=== PATIENT | female | born 1980 | race Caucasian/White ===

== ENCOUNTER 2016-12-06 18:24 | Emergency (ER) | payer OTHER ==
[2016-12-06 18:41] VITALS: BP 136/84; PULSE 78; RESP 20; TEMP 97.5
[2016-12-06] MEDS ORDERED: LIDOCAINE/EPINEPHR/TETRACAINE 5 ML BOTTLE TOPICAL ONE (19:01)
[2016-12-06] MEDS ORDERED: DIPH,PERTUS(ACELL)TETVAC-LF 0.5 ML VIAL IM ONE (19:03)
--- NOTE | 2016-12-06 19:03 | ED ---
Wound/Laceration HPI - General Chief Complaint: Wound/Laceration Stated Complaint: laceration over right eye Time Seen by Provider: 12/06/16 18:44 Source: patient, RN notes reviewed Mode of arrival: ambulatory Limitations: no limitations - History of Present Illness Initial Comments: Patient is a 36-year old female presents to the emergency room for evaluation of right eye laceration. Patient states that she was in the right eye with a softball about an hour before arrival. Patient denies loss of consciousness. Patient denies changes in vision. Patient denies nausea or vomiting. Patient denies neck pain. Patient states she has a laceration underneath her right eyebrow. Patient states she's not sure when her last tetanus vaccine was. Patient denies any other injuries during incident. Patient denies headache. Patient denies taking blood thinners. - Related Data Home Medications Medication Instructions Recorded Confirmed Loratadine-Pseudoeph 10-240 mg 1 tab PO DAILY 12/01/14 12/01/14 [Claritin-D 24 Hour] Norgestimate-Ethinyl Estradiol 1 tab PO DAILY 12/01/14 12/01/14 [Ortho Tri-Cyclen 28 Tablet] Previous Rx's Medication Instructions Recorded oxyCODONE HCL/ACETAMINOPHEN 1 each PO Q6HR PRN #30 tab 12/02/14 [Percocet 5-325 mg] Allergies Allergy/AdvReac Type Severity Reaction Status Date / Time No Known Allergies Allergy Verified 12/06/16 18:41 Review of Systems ROS Statement: Those systems with pertinent positive or pertinent negative responses have been documented in the HPI. ROS Other: All systems not noted in ROS Statement are negative. Past Medical History Past Medical History: No Reported History Additional Past Medical History / Comment(s): Patient has had surgery for fractured femur on the right side History of Any Multi-Drug Resistant Organisms: None Reported Past Surgical History: No Surgical Hx Reported Past Psychological History: No Psychological Hx Reported Smoking Status: Never smoker Past Alcohol Use History: None Reported Past Drug Use History: None Reported General Exam - General Exam Comments Initial Comments: Sitting in exam room, no acute distress. Limitations: no limitations General appearance: alert, in no apparent distress Expanded Head exam: Present: laceration (2cm laceration under the right lateral portion of the eyebrow), contusion (right eye) 1 - 2cm laceration Eye exam: Present: normal appearance, PERRL, EOMI Pupils: Present: normal accommodation ENT exam: Present: normal exam Neck exam: Present: normal inspection Respiratory exam: Absent: respiratory distress Extremities exam: Present: normal inspection Back exam: Present: normal inspection Neurological exam: Present: alert, oriented X3, CN II-XII intact, normal gait Psychiatric exam: Present: normal affect, normal mood Skin exam: Present: warm, dry, normal color. Absent: rash Course Vital Signs 12/06/16 18:38 Temperature 97.5 F L Pulse Rate 78 Respiratory 20 Rate Blood Pressure 136/84 O2 Sat by Pulse 99 Oximetry Procedures - Laceration Laceration #1 Consent Obtained: verbal consent Indication: laceration Site: eyelid (right upper) Size (cm): 2 Description: linear Depth: simple, single layer Anesthetic Used: lidocaine 1% Anesthesia Technique: local infiltration Amount (mls): 2 Pre-repair: wound explored Type of Sutures: nylon Size of Sutures: 6-0 Number of Sutures: 6 Technique: simple, interrupted Patient Tolerated Procedure: well, no complications Medical Decision Making - Medical Decision Making Patient is a 36-year-old female presents to the emergency room for evaluation of right eye contusion and laceration. Laceration repaired with sutures. Advised patient to continue icing eye. Patient denies any changes in vision. Patient states she began developing a slight 3 out of 10 headache while she was here. Patient was given Tylenol. Patient declines any further workup. Advised patient to follow-up with primary care provider. Advised patient to return in 3-5 days for suture removal. Patient states she understands everything that was discussed with her. Return parameters discussed. Disposition Clinical Impression: Eyelid laceration, right, Contusion, eye, right Disposition: HOME SELF-CARE Condition: Good Instructions: Care For Your Stitches (ED), Black Eye (ED), Facial Laceration ( ED) Additional Instructions: Ice on and off for 10-15 minutes at a time. Take Tylenol or Motrin as needed for pain. Clean suture area with a damp cloth. Please return in 3-5 days for suture removal. Please follow up with primary care provider in 1-2 days. If any new symptom arises or symptoms worsen, return to ER as soon as possible. Referrals: Zain Toussaint MD [Primary Care Provider] - 1-2 days Time of Disposition: 19:41
[2016-12-06] MEDS ORDERED: ACETAMINOPHEN TAB 325 MG TAB PO STA (19:40)
== END 2016-12-06 20:09 | disposition home or self-care (01) ==
LOC: EC 18:24
DX: S01.111A Laceration without foreign body of right eyelid and periocular area, initial encounter (principal); W21.07XA Struck by softball, initial encounter; Y93.64 Activity, baseball; Z79.899 Other long term (current) drug therapy; Z79.3 Long term (current) use of hormonal contraceptives; Z23 Encounter for immunization
CPT/HCPCS: 12011; 90471; 90715; 99282

== ENCOUNTER → 2018-06-08 | Outpatient (CLI) | payer OTHER ==
[2018-06-08 11:29] VITALS: PULSE 62; TEMP 97.4; BMI 28.8
--- NOTE | 2018-06-08 12:06 | P.HPOB ---
History of Present Illness H&P Date: 06/08/18 Chief Complaint: The patient is here for her routine gynecologic exam. This is a 37-year-old G0 with an LMP of 05/31/2018. The patient is without gynecologic complaints and states she is doing well with her control pills. She is not interested in getting . Menses have been regular. Review of Systems The patient has gained 3 pounds over the last year. She denies respiratory, cardiac, or G.I. problems. 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 She has been on oral contraception since she was a teenager. History of Any Multi-Drug Resistant Organisms: None Reported Past Surgical History: Appendectomy, Orthopedic Surgery (Patient has had surgery for fractured femur on the right side) Past Psychological History: No Psychological Hx Reported Smoking Status: Never smoker Past Alcohol Use History: None Reported Past Drug Use History: None Reported Additional History: She has been with her boyfriend since 2003 and lives with him. 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 - Past Family History Father Family Medical History: CVA/TIA Additional Family Medical History / Comment(s): Grandmother had pancreatic cancer. Medications and Allergies Home Medications Medication Instructions Recorded Confirmed Type Norgestimate-Ethinyl Estradiol 1 tab PO DAILY 12/01/14 06/08/18 History [Ortho Tri-Cyclen 28 Tablet] Multivitamin [Multivitamins Adult PO DAILY 06/08/18 History Gummies] Allergies Allergy/AdvReac Type Severity Reaction Status Date / Time No Known Allergies Allergy Verified 06/08/18 11:29 Exam Vital Signs Temp Pulse 06/08/18 11:22 97.4 F L 62 Intake and Output 06/07/18 06/08/18 06/08/18 22:59 06:59 14:59 Other: Weight 78.471 kg Blood pressure 124/86, height 5'5", weight 173 pounds, BMI 28.8. This is a well-developed well-nourished white female who is alert and oriented times 3 in no acute distress. HEENT: Within normal limits. NECK: Supple without mass or thyromegaly. CHEST AND LUNGS: Clear to auscultation. HEART: Regular rate and rhythm. BREASTS: Are without mass or discharge. AXILLARY EXAM: Negative for adenopathy. BACK: Negative for CVA tenderness. ABDOMEN: Soft, nontender, without palpable masses. PELVIC EXAM: Normal external genitalia. Cervix and vagina appear normal. The cervix is slightly friable upon doing the Pap smear. There is no unusual discharge. There is no evidence of prolapse. The uterus is midposition, nongravid size and nontender. There are no palpable adnexal masses or tenderness. RECTAL EXAM: negative for mass or tenderness. EXTREMITIES: Nontender. IMPRESSION: 1. 37-year-old female with normal gynecologic exam who is doing well with oral contraception. PLAN: 1. Pap smear was performed. 2. Self breast awareness was discussed with the patient. 3. Osteoporosis prevention was discussed. I have stressed the importance of adequate calcium, vitamin D and regular exercise. Recommended amounts of calcium and vitamin D were also discussed. 4. She will continue on oral contraception. The electronic prescription will be sent to [facility] pharmacy in [place]. 5. She will return in one year.
== END | disposition home or self-care (01) ==
LOC: WWCWWP 11:19
PROVIDERS: ATTEND Obstetrics & Gynecology
DX: Z53.9 Procedure and treatment not carried out, unspecified reason (principal)

== ENCOUNTER → 2019-01-31 | Outpatient (CLI) | payer OTHER ==
--- NOTE | 2019-01-31 13:28 | MR ---
EXAMINATION TYPE: MR brain wo/w con DATE OF EXAM: 01/31/2019 COMPARISON: NONE HISTORY: Migraine TECHNIQUE: Multiplanar, multisequence images of the brain and brainstem is performed without and with IV contras t, utilizing 8 mL intravenous Gadavist . FINDINGS: Diffusion weighted images demonstrate no evidence of a recent infarct or other diffusion ab normality. There is no extra-axial fluid collection or significant white matter signal abnormality. The ventricular system and cisternal spaces are normal in size and appearance. The brain volume is age appropriate. Midline structures demonstrate normal morphology. The craniocervical junction appears within normal limits. Post contrast images demonstrate no abnormal enhancement. The dural venous sinuses appear pa tent. The visualized sinuses are clear and the globes are intact. IMPRESSION: Unremarkable study. No suspicious findings seen to account for patient's symptoms of migr harish headaches.
== END | disposition home or self-care (01) ==
LOC: RADMRIMAIN 08:12
PROVIDERS: ATTEND Family Medicine
DX: G43.909 Migraine, unspecified, not intractable, without status migrainosus (principal)
CPT/HCPCS: 70553; A9585

== ENCOUNTER → 2019-05-24 | Outpatient (CLI) | payer OTHER ==
[2019-05-24 09:28] VITALS: BP 134/91; PULSE 72; RESP 16; TEMP 98
--- NOTE | 2019-05-24 10:02 | P.HPOB ---
History of Present Illness H&P Date: 05/24/19 Chief Complaint: the patient is here for her routine gynecologic exam This is a 38-year-old G0 with an LMP of 05/03/2019. The patient states she is doing well on her control pills and is without gynecologic complaints. She is not interested in getting in the near future. Review of Systems The patient has gained 5 pounds over the last year. She denies respiratory, cardiac, or G.I. problems. 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 She has been on oral contraception since she was a teenager. History of Any Multi-Drug Resistant Organisms: None Reported Past Surgical History: Appendectomy, Orthopedic Surgery Past Psychological History: No Psychological Hx Reported Smoking Status: Never smoker Past Alcohol Use History: None Reported Past Drug Use History: None Reported Additional History: she has been with her boyfriend since 2003 and lives with him. 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 - Past Family History Father Family Medical History: CVA/TIA Additional Family Medical History / Comment(s): Grandmother had pancreatic cancer. Medications and Allergies Home Medications Medication Instructions Recorded Confirmed Type Multivitamin [Multivitamins Adult 1 tab PO DAILY 06/08/18 05/24/19 History Gummies] Norgestimate-Ethinyl Estradiol 1 each PO DAILY #84 tablet 06/08/18 05/24/19 Rx [Ortho Tri-Cyclen 28 Tablet] Fexofenadine/Pseudoephedrine 1 tab PO DAILY 05/24/19 05/24/19 History [Renetta-D 24 Hour Tablet] Allergies Allergy/AdvReac Type Severity Reaction Status Date / Time No Known Allergies Allergy Verified 05/24/19 09:23 Exam Vital Signs Temp Pulse Resp BP Pulse Ox 05/24/19 09:25 98.0 F 72 16 134/91 97 Intake and Output 05/23/19 05/24/19 05/24/19 22:59 06:59 14:59 Other: Weight 80.739 kg height 5 feet 6 inches, weight 178 pounds, BMI 28.7. This is a well-developed well-nourished White female who is alert and oriented times 3 in no acute distress. HEENT: Within normal limits. NECK: Supple without mass or thyromegaly. CHEST AND LUNGS: Clear to auscultation. HEART: Regular rate and rhythm. BREASTS: Are without mass or discharge. AXILLARY EXAM: Negative for adenopathy. BACK: Negative for CVA tenderness. ABDOMEN: Soft, nontender, without palpable masses. PELVIC EXAM: Normal external genitalia. Cervix and vagina appear normal. There is no unusual discharge. There is no evidence of prolapse. The uterus is midposition, nongravid size and nontender. There are no palpable adnexal masses or tenderness. RECTAL EXAM: negative for mass or tenderness. EXTREMITIES: Nontender. IMPRESSION: 1. 38-year-old female doing well on oral contraception with normal gynecologic exam. 2.previous ASCUS Pap smear on 06/08/2018 with negative high-risk HPV testing. PLAN: 1. Pap smear was deferred. We will plan on repeating the Pap smear with high- risk HPV testing in approximately 1-2 years. 2. Self breast awareness was discussed with the patient. 3. We have discussed other control options including the IUD and tubal sterilization. We have discussed a slight gradual increased risk for blood clots with oral contraception, but since she is healthy and is a nonsmoker, she still is a candidate to continue oral contraception. She states she likes being on oral contraception and is declining any other method at this time. 4. her control pill prescription will be sent to my her pharmacy in [place]. 5. She was advised to return in one year for her annual well woman exam.
== END ==
LOC: WWCWWP 09:10
PROVIDERS: ATTEND Obstetrics & Gynecology
DX: Z53.9 Procedure and treatment not carried out, unspecified reason (principal)

== ENCOUNTER 2020-03-01 06:25 | Day surgery (SDC) | payer OTHER ==
[2020-02-29 12:40] VITALS: BMI 28.5
[~2020-03-01 06:25] MED LIST: ACETAMINOPHEN TAB 500 MG TAB PO ONE; DEXAMETHASONE SOD PHOSPHATE 10 MG/ML 1 ML VIAL IV ONE; HEPARIN SODIUM,PORCINE 5,000 UNIT/ML 1 ML VIAL SQ ONE; LACTATED RINGERS 1,000 ML IV SCH; LIDOCAINE 1% (10MG/ML) FOR IV START INTRADERMA PRN; MIDAZOLAM 2 MG/2 ML VIAL IV PRN; ONDANSETRON 4 MG/2 ML VIAL IVP ONE
[2020-03-01 06:53] VITALS: RESP 16
[2020-03-01] MEDS ORDERED: BUPIVACAINE (PF) 0.25% 30 ML VIAL SQ ONE ×2 (07:29→08:08)
[2020-03-01] MEDS ORDERED: MIDAZOLAM 2 MG/2 ML VIAL ONE (07:45)
[2020-03-01] MEDS ORDERED: fentaNYL (PF) 50 MCG/ML 2 ML AMP ONE (07:45)
[2020-03-01] MEDS ORDERED: HYDROmorphone (PF) 1 MG/ML ONE (07:45)
[2020-03-01] MEDS ORDERED: GLYCOPYRROLATE 0.2 MG/ML 2 ML VIAL ONE (07:45)
[2020-03-01] MEDS ORDERED: LIDOCAINE 1% INJ 10MG/ML (20 ML MDV) ONE (07:45)
[2020-03-01] MEDS ORDERED: NEOSTIGMINE 1 MG/ML 10 ML VIAL ONE (07:45)
[2020-03-01] MEDS ORDERED: SUCCINYLCHOLINE CHLORIDE 100 MG/5 ML SYR IV ONE (07:45)
[2020-03-01] MEDS ORDERED: PROPOFOL 10 MG/ML 20 ML VIAL IV ONE (07:45)
[2020-03-01] MEDS ORDERED: ROCURONIUM 10 MG/ML (5 ML VIAL) IV ONE (07:45)
[2020-03-01] MEDS ORDERED: LACTATED RINGERS 1,000 ML IV ONE (08:28)
[2020-03-01] MEDS ORDERED: ONDANSETRON 4 MG/2 ML VIAL IVP PRN (08:47)
[2020-03-01] MEDS ORDERED: HYDROcodone/APAP 5-325MG 1 EACH TAB PO PRN (08:47)
[2020-03-01] MEDS ORDERED: NALOXONE 0.4 MG/ML 1 ML VIAL IV PRN (08:47)
--- NOTE | 2020-03-01 08:50 | P.OP ---
Date of Procedure: 03/01/20 Procedure(s) Performed: PREOPERATIVE DIAGNOSIS: Chronic cholecystitis POSTOPERATIVE DIAGNOSIS: Same PROCEDURE: Laparoscopic cholecystectomy SURGEON: Maggy EBL: Minimal see anesthesia record ANESTHESIA: Gen. COMPLICATIONS: None OPERATIVE PROCEDURE: The patient was brought and placed on the operating room table in the supine position. The patient was placed under general anesthesia at that time. The abdomen was prepped and draped in the usual sterile fashion. A small vertical infraumbilical incision was made. The fascia was grasped with the Kirstin forceps. The fascia was retracted anteriorly. The Veress needle was advanced into the peritoneal cavity. The saline drop test was normal. Insufflation took place up to 15 mmHg. A 5 mm optical trocar was advanced and the peritoneal cavity. 2 additional 5 mm trochars were placed in the right upper quadrant under direct visualization. A 12 mm trocar was advanced into the epigastric incision site. The gallbladder was retracted superiorly and laterally. The peritoneum overlying the infundibulum was bluntly dissected. The patient's cystic duct was visualized. The junction between the cystic duct common and hepatic duct was identified. The cystic duct was then divided after placement of 3 12 mm clips on the patient's side and one on the specimen side. The cystic artery was identified and clipped as well. A small vessel was seen along the gallbladder fossa and clipped as well. The gallbladder was then removed from the liver bed using electrocautery. The gallbladder was then removed from the epigastric trocar site with an Endo Catch bag. The gallbladder fossa was irrigated with saline. There was no evidence of any bleeding or biliary drainage seen. The fascia at the 12 millimeter site was closed using a Rayo-Rosey 0 Vicryl stitch. The trochars were then removed. The skin at all 4 sites was closed using a 4-0 Monocryl stitch. Skin glue was utilized on the incision sites. At the end of this procedure the sponge and needle counts were correct. DISPOSITION: Stable to the recovery room
[2020-03-01 09:02] VITALS: TEMP 97
[2020-03-01] MEDS ORDERED: ONDANSETRON 4 MG/2 ML VIAL IVP ONE (09:05)
[2020-03-01] MEDS ORDERED: KETOROLAC 15 MG/ML 1 ML VIAL IVP ONE (09:07)
[2020-03-01] MEDS ORDERED: diphenhydrAMINE 50 MG/ML 1 ML VIAL IVP ONE (09:18)
[2020-03-01] MEDS: HYDROmorphone 0.5 MG/0.5 ML SYRINGE IVP PRN ×2 (09:20→09:30)
[2020-03-01 11:39] VITALS: BP 144/81; PULSE 76
== END 2020-03-01 12:17 | disposition home or self-care (01) ==
LOC: OR 06:25
PROVIDERS: ATTEND Surgery
DX: K80.10 Calculus of gallbladder with chronic cholecystitis without obstruction (principal); K21.9 Gastro-esophageal reflux disease without esophagitis; Z87.81 Personal history of (healed) traumatic fracture; Z79.3 Long term (current) use of hormonal contraceptives; Z79.899 Other long term (current) drug therapy; Z82.3 Family history of stroke; Z80.0 Family history of malignant neoplasm of digestive organs; Z98.890 Other specified postprocedural states; Z90.89 Acquired absence of other organs
CPT/HCPCS: 47562; 81025; 88304; J2250; J1200; J1644; J1100; J2710; J0690; J2405; J2001; J3010; J1170 ×2; J1885; J0330; J2704

== ENCOUNTER → 2020-07-16 | Outpatient (CLI) | payer BC ==
[2020-07-16 10:47] VITALS: BP 131/73; PULSE 65; RESP 18; TEMP 97.9
--- NOTE | 2020-07-16 11:37 | P.HPOB ---
History of Present Illness H&P Date: 07/16/20 Chief Complaint: The patient is here for her routine gynecologic exam and for control. This is a 39-year-old G0 with an LMP of 07/03/2020. The patient is without gynecologic complaints and is doing well with control pills. She is not interested in getting . Review of Systems The patient has gained 6 pounds over the last year. She denies respiratory, cardiac, or G.I. problems. 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 History of Any Multi-Drug Resistant Organisms: None Reported Past Surgical History: Appendectomy, Cholecystectomy, Orthopedic Surgery Additional Past Surgical History / Comment(s): ORIF Rt Tib-fib fx. Vein surgery under eye as child. Past Anesthesia/Blood Transfusion Reactions: No Reported Reaction Past Psychological History: No Psychological Hx Reported Smoking Status: Never smoker Past Alcohol Use History: None Reported Past Drug Use History: None Reported Additional History: She is single and has been with her boyfriend since 2003 and she lives with him. 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 - Past Family History Father Family Medical History: CVA/TIA Additional Family Medical History / Comment(s): Grandmother had pancreatic cancer. Medications and Allergies Home Medications Medication Instructions Recorded Confirmed Type Multivitamin [Multivitamins Adult 1 tab PO DAILY 06/08/18 07/16/20 History Gummies] Norgestimate-Ethinyl Estradiol 1 each PO DAILY #84 tablet 05/24/19 07/16/20 Rx [Ortho Tri-Cyclen 28 Tablet] Allergy Injection 1 injection INJ WEEKLY 02/29/20 07/16/20 History Fexofenadine HCl [Renetta Allergy] 180 mg PO DAILY 02/29/20 07/16/20 History Allergies Allergy/AdvReac Type Severity Reaction Status Date / Time No Known Allergies Allergy Verified 07/16/20 10:43 Exam Vital Signs Temp Pulse Resp BP Pulse Ox 07/16/20 10:44 97.9 F 65 18 131/73 98 Intake and Output 07/15/20 07/16/20 07/16/20 22:59 06:59 14:59 Other: Weight 83.461 kg Height 5 feet 6-1/2 inches, weight 184 pounds, BMI 29.3. This is a well-developed well-nourished white female who is alert and oriented times 3 in no acute distress. HEENT: Within normal limits. NECK: Supple without mass or thyromegaly. CHEST AND LUNGS: Clear to auscultation. HEART: Regular rate and rhythm. BREASTS: Are without mass or discharge. AXILLARY EXAM: Negative for adenopathy. BACK: Negative for CVA tenderness. ABDOMEN: Soft, nontender, without palpable masses. PELVIC EXAM: Normal external genitalia. Cervix and vagina appear normal. There is no unusual discharge. There is no evidence of prolapse. The uterus is midposition, nongravid size and nontender. There are no palpable adnexal masses or tenderness. RECTAL EXAM: negative for mass or tenderness and is negative for occult blood. EXTREMITIES: Nontender. IMPRESSION: 1. 39-year-old female doing well with oral contraception with normal gynecologic examination. 2. History of previous ASCUS Pap smear with negative high-risk HPV testing on 06/08/2018. PLAN: 1. Pap smear cotest was performed. 2. Self breast awareness was discussed with the patient. 3. Baseline screening mammogram is scheduled for 07/29/2020. The order slip was given to the patient for this. 4. Osteoporosis prevention was discussed. I have stressed the importance of adequate calcium, vitamin D and regular exercise. Recommended amounts of calcium and vitamin D were also discussed. 5. She will continue on her oral contraception and the electronic prescription will be sent to my her pharmacy in [place]. 6. She was advised to return in one year for her annual well woman exam.
--- NOTE | 2020-07-30 15:12 | P.PN ---
Progress Note - Text Progress Note Date: 07/30/20 OUTPATIENT FOLLOW-UP NOTE TEST(S)/RESULTS: Test results from 07/16/2020 include negative Pap smear and negative high-risk HPV testing. METHOD OF NOTIFICATION: A message with this result was left on the patient's voicemail. PATIENT COMMENTS: DIAGNOSIS: Negative Pap smear cotest. DISCUSSION: Her previous Pap smear showed ASCUS with negative high-risk HPV testing on 06/08/2018. The ASCCP five-year risk for TYRON-3 or greater is 0.14% and five-year follow-up is recommended. PLAN: She was advised to return in one year for her annual well woman exam. We will plan on repeating the Pap smear cotest in 4-5 years.
== END | disposition home or self-care (01) ==
LOC: WWCWWP 10:10
PROVIDERS: ATTEND Obstetrics & Gynecology
DX: Z53.9 Procedure and treatment not carried out, unspecified reason (principal)

== ENCOUNTER → 2020-07-29 | Outpatient (CLI) | payer BC ==
--- NOTE | 2020-07-29 14:14 | MM ---
Reason for exam: screening (asymptomatic). Baseline mammogram. History: Patient is nulliparous. Taking hormonal contraceptives beginning at age 15. Physical Findings: Nurse did not find any significant physical abnormalities on exam. MG Screening Mammo w CAD Bilateral CC and MLO view(s) were taken. There are scattered fibroglandular densities. These results were verbally communicated with the patient and result sheet given to the patient on 07/29/20. ASSESSMENT: Benign, BI-RAD 2 RECOMMENDATION: Routine screening mammogram of both breasts in 1 year.
== END | disposition home or self-care (01) ==
LOC: RADMAMWWP 12:46
PROVIDERS: ATTEND Obstetrics & Gynecology
DX: Z12.31 Encounter for screening mammogram for malignant neoplasm of breast (principal)
CPT/HCPCS: 77067

== ENCOUNTER → 2021-10-14 | Outpatient (CLI) | payer BC | END | disposition home or self-care (01) | LOC: LABWHC1 10:29 | PROVIDERS: ATTEND Otolaryngology | DX: J30.89 Other allergic rhinitis (principal) | CPT/HCPCS: 36415; 86001 ==

== ENCOUNTER → 2021-11-18 | Outpatient (CLI) | payer BC ==
[2021-11-18 09:23] VITALS: BP 135/89; PULSE 73; RESP 17; TEMP 98.1
--- NOTE | 2021-11-18 10:15 | P.HPOB ---
History of Present Illness H&P Date: 11/18/21 Chief Complaint: The patient is here for her routine gynecologic exam and ma mmogram. This is a 41-year-old G0 with an LMP of 11/12/2021. The patient's prescription for control pills had run out a couple months ago and she had missed for pills because of this. When a new prescription was sent in, she restarted the pills. She did have some irregular bleeding over the past couple of months following the missed pills. She thinks her bleeding is now becoming more pr edictable. She is otherwise without complaints and would like to continue on the control pills. Review of Systems The patient has gained 4 pounds over the last year. She denies respiratory, cardiac, or G.I. problems. 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 History of Any Multi-Drug Resistant Organisms: None Reported Past Surgical History: Appendectomy, Cholecystectomy, Orthopedic Surgery Additional Past Surgical History / Comment(s): ORIF Rt Tib-fib fx. Vein surgery under eye as child. Past Anesthesia/Blood Transfusion Reactions: No Reported Reaction Past Psychological History: No Psychological Hx Reported Smoking Status: Never smoker Past Alcohol Use History: None Reported Past Drug Use History: None Reported Additional History: She is single and has been with her boyfriend since 2003. She lives with him. 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 - Past Family History Father Family Medical History: CVA/TIA Additional Family Medical History / Comment(s): Grandmother had pancreatic cancer. Medications and Allergies Home Medications Medication Instructions Recorded Confirmed Type Multivitamin [Multivitamins Adult 1 tab PO DAILY 06/08/18 11/18/21 History Gummies] Allergy Injection 1 injection INJ DIRECTED 02/29/20 07/16/20 History Fexofenadine HCl [Renetta Allergy] 180 mg PO DAILY 02/29/20 11/18/21 History Norgestimate-Ethinyl Estradiol 1 each PO DAILY #84 tablet 07/16/20 11/18/21 Rx [Ortho Tri-Cyclen 28 Tablet] Allergies Allergy/AdvReac Type Severity Reaction Status Date / Time lactose Allergy Nausea Unverified 11/18/21 09:17 Exam Vital Signs Temp Pulse Resp BP Pulse Ox 11/18/21 09:18 98.1 F 73 17 135/89 96 Intake and Output 11/17/21 11/18/21 11/18/21 22:59 06:59 14:59 Other: Weight 85.275 kg Height 5 feet 6 inches, weight 188 pounds, BMI 30.3. This is a well-developed well-nourished white female who is alert and oriented times 3 in no acute distress. HEENT: Within normal limits. NECK: Supple without mass or thyromegaly. CHEST AND LUNGS: Clear to auscultation. HEART: Regular rate and rhythm. BREASTS: Are without mass or discharge. AXILLARY EXAM: Negative for adenopathy. BACK: Negative for CVA tenderness. ABDOMEN: Soft, nontender, without palpable masses. PELVIC EXAM: Normal external genitalia. Cervix and vagina appear normal. There is no unusual discharge. There is a small amount of menstrual blood in the back of the vagina. There is no evidence of prolapse. The uterus is midposition, nongravid size and nontender. There are no palpable adnexal masses or tenderness. RECTAL EXAM: negative for mass or tenderness and is negative for occult blood. EXTREMITIES: Nontender. IMPRESSION: 1. 41-year-old female on oral contraception with normal gynecologic exam. 2. Breakthrough bleeding after missing for pills 2 months ago with bleeding becoming more regular after restarting oral contraception. PLAN: 1. Pap smear was deferred since she had a negative Pap smear cotest on 07/26/2020. 2. Self breast awareness was discussed with the patient. We have also discussed symptoms associated with inflammatory breast cancer. 3. Screening mammogram will be done today. 4. Continue oral contraception. The electronic prescription for Ortho Tri- Cyclen will be sent to [facility] in [place]. 5. She has not received a Covid vaccination and has not had Covid. I have recommended that she look into getting a Covid vaccination. She will consider this. 6. She was advised to return in one year for her annual well woman exam.
--- NOTE | 2021-11-19 11:49 | MM ---
Reason for Exam: Screening (asymptomatic). Last mammogram was performed 1 year(s) and 4 month(s) ago. Patient History: Menarche at age 14. Patient has no children. Currently using Hormonal Contraceptives, starting at age 15. Last menstrual period: 11/11/2021 Risk Values: Shea 5 year model risk: 0.7%. NCI Lifetime model risk: 10.0%. Prior Study Comparison: 07/29/2020 Bilateral Screening Mammogram, [facility]. Tissue Density: There are scattered fibroglandular densities. Findings: Analyzed By CAD. There is no suspicious group of microcalcifications or new suspicious mass in either breast. Overall Assessment: Negative, BI-RAD 1 Management: Screening Mammogram of both breasts in 1 year. A clinical breast exam by your physician is recommended on an annual basis and results should be correlated with mammographic findings. Electronically signed and approved by: Kadeem Newberry M.D.
== END ==
LOC: WWCWWP 09:03
PROVIDERS: ATTEND Obstetrics & Gynecology
DX: Z01.419 Encounter for gynecological examination (general) (routine) without abnormal findings (principal); Z12.31 Encounter for screening mammogram for malignant neoplasm of breast; N93.9 Abnormal uterine and vaginal bleeding, unspecified; Z91.011 Allergy to milk products
CPT/HCPCS: 77067

== ENCOUNTER → 2022-11-24 | Outpatient (CLI) | payer BC ==
[2022-11-24 13:25] VITALS: BP 123/80; PULSE 78; RESP 16; TEMP 97.4
--- NOTE | 2022-11-24 13:53 | P.HPOB ---
History of Present Illness H&P Date: 11/24/22 Chief Complaint: The patient is here for her routine gynecologic exam and ma mmogram. This is a 42-year-old G0 with an LMP of 11/18/2022. She states she is doing well on oral contraception. She is without gynecologic complaints and would like to continue on the control pills. Review of Systems The patient has lost 8 pounds over the last year. She denies respiratory, cardiac, or G.I. problems. 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 History of Any Multi-Drug Resistant Organisms: None Reported Past Surgical History: Appendectomy, Cholecystectomy, Orthopedic Surgery Additional Past Surgical History / Comment(s): ORIF Rt Tib-fib fx. Vein surgery under eye as child. Past Anesthesia/Blood Transfusion Reactions: No Reported Reaction Past Psychological History: No Psychological Hx Reported Smoking Status: Never smoker Past Alcohol Use History: Rare (2 per year.) Past Drug Use History: None Reported Additional History: She is single and has been with her boyfriend since 2003. She lives with him. 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 - Past Family History Father Family Medical History: CVA/TIA Additional Family Medical History / Comment(s): Grandmother had pancreatic cancer. Medications and Allergies Home Medications Medication Instructions Recorded Confirmed Type Multivitamin [Multivitamins Adult 1 tab PO DAILY 06/08/18 11/24/22 History Gummies] Allergy Injection 1 injection INJ DIRECTED 02/29/20 11/24/22 History Fexofenadine HCl [Renetta Allergy] 180 mg PO DAILY 02/29/20 11/24/22 History norgestimate-ethinyl estradioL 1 each PO DAILY #84 tablet 11/18/21 11/24/22 Rx [Ortho Tri-Cyclen 28 Tablet] Allergies Allergy/AdvReac Type Severity Reaction Status Date / Time lactose Allergy Nausea Unverified 11/24/22 13:21 Exam Vital Signs Temp Pulse Resp BP Pulse Ox 11/24/22 13:22 97.4 F L 78 16 123/80 97 Intake and Output 11/23/22 11/24/22 11/24/22 22:59 06:59 14:59 Other: Weight 81.647 kg Height 5 feet 6 inches, weight 180 pounds, BMI 29.1. This is a well-developed well-nourished white female who is alert and oriented times 3 in no acute distress. HEENT: Within normal limits. NECK: Supple without mass or thyromegaly. CHEST AND LUNGS: Clear to auscultation. HEART: Regular rate and rhythm. BREASTS: Are without mass or discharge. AXILLARY EXAM: Negative for adenopathy. BACK: Negative for CVA tenderness. ABDOMEN: Soft, nontender, without palpable masses. PELVIC EXAM: Normal external genitalia. Cervix and vagina appear normal. There is a small amount of thick whitish discharge without odor. She denies any discharge or pruritus. This is consistent with a physiologic discharge. There is no evidence of prolapse. The uterus is midposition, nongravid size and nontender. There are no palpable adnexal masses or tenderness. RECTAL EXAM: negative for mass or tenderness and is negative for occult blood. EXTREMITIES: Nontender. IMPRESSION: 1. 42-year-old gynecologically healthy female doing well on oral contraception. PLAN: 1. Pap smear was deferred since she had a negative Pap smear cotest on 07/16/2020. 2. Self breast awareness was discussed with the patient. We have also discussed symptoms associated with inflammatory breast cancer. 3. Screening mammogram will be done today. 4. Osteoporosis prevention was discussed. I have stressed the importance of adequate calcium, vitamin D and regular exercise. Recommended amounts of calcium and vitamin D were also discussed. 5. Continue oral contraception. The electronic prescription for Ortho Tri- Cyclen will be sent to [facility] in [place]. 6. She was advised to return in one year for her annual well woman exam.
--- NOTE | 2022-11-25 16:38 | MM ---
Reason for Exam: Screening (asymptomatic). Last screening mammogram was performed 12 month(s) ago. Patient History: Menarche at age 14. Patient has no children. Currently using Hormonal Contraceptives, starting at age 15. Risk Values: Shea 5 year model risk: 0.7%. NCI Lifetime model risk: 9.9%. Prior Study Comparison: 07/29/2020 Bilateral Screening Mammogram, [facility]. 11/18/2021 Bilateral MG screening mammo w CAD, [facility]. Tissue Density: There are scattered fibroglandular densities. Findings: Analyzed By CAD. Pattern appears symmetrical and stable. No significant interval change is evident. Benign calcifications within the right breast. No significant interval change is evident. No suspicious groups of microcalcifications, spiculated or lobular masses, architectural distortion or other secondary signs of malignancy are mammographically apparent. Overall Assessment: Benign, BI-RAD 2 Management: Screening Mammogram of both breasts in 1 year. A negative mammogram report should not preclude additional follow up of suspicious palpable abnormalities. Patient should continue monthly self breast exam. A clinical breast exam by your physician is recommended on an annual basis and results should be correlated with mammographic findings. Electronically signed and approved by: Tom Rucker D.O. Radiologis
== END | disposition home or self-care (01) ==
LOC: WWCWWP 13:08
PROVIDERS: ATTEND Obstetrics & Gynecology
DX: Z12.31 Encounter for screening mammogram for malignant neoplasm of breast (principal); Z01.419 Encounter for gynecological examination (general) (routine) without abnormal findings; Z90.49 Acquired absence of other specified parts of digestive tract; Z82.3 Family history of stroke
CPT/HCPCS: 77067

== ENCOUNTER → 2023-11-30 | Outpatient (CLI) | payer BC ==
[2023-11-30 15:28] VITALS: BP 151/87; PULSE 76; RESP 16; TEMP 98.5
--- NOTE | 2023-11-30 15:55 | P.HPOB ---
History of Present Illness H&P Date: 11/30/23 Chief Complaint: The patient is here for her routine gynecologic exam and ma mmogram. This is a 43-year-old G0 with an LMP of 11/10/2023. Patient continues to take the generic of Ortho Tri-Cyclen. She states she is doing well on this and would like to continue on with this. She states she does not want to get and probably will not want to ever be . She is without gynecologic complaints. Review of Systems She has gained about 6 pounds over the past year. She denies respiratory, cardiac, or GI problems. 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 History of Any Multi-Drug Resistant Organisms: None Reported Past Surgical History: Appendectomy, Cholecystectomy, Orthopedic Surgery Additional Past Surgical History / Comment(s): ORIF Rt Tib-fib fx. Vein surgery under eye as child. Past Anesthesia/Blood Transfusion Reactions: No Reported Reaction Past Psychological History: No Psychological Hx Reported Smoking Status: Never smoker Past Alcohol Use History: Rare (3 drinks per year.) Past Drug Use History: None Reported Additional History: She is single and has been with her boyfriend since 2003 and they live together. 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 - Past Family History Father Family Medical History: CVA/TIA Additional Family Medical History / Comment(s): Grandmother had pancreatic cancer. Medications and Allergies Home Medications Medication Instructions Recorded Confirmed Type Multivitamin [Multivitamins Adult 1 tab PO DAILY 06/08/18 11/24/22 History Gummies] Fexofenadine HCl [Renetta Allergy] 180 mg PO DAILY 02/29/20 11/24/22 History norgestimate-ethinyl estradioL 1 each PO DAILY #84 tablet 11/24/22 Rx [Ortho Tri-Cyclen 28 Tablet] Olopatadine HCl [Pataday Once 1 drop BOTH EYES DAILY 11/30/23 11/30/23 History Daily Relief] Allergies Allergy/AdvReac Type Severity Reaction Status Date / Time lactose Allergy Nausea Unverified 11/30/23 15:25 Exam Vital Signs Temp Pulse Resp BP Pulse Ox 11/30/23 15:26 98.5 F 76 16 151/87 96 Intake and Output 11/30/23 11/30/23 11/30/23 06:59 14:59 22:59 Other: Weight 84.368 kg Repeat blood pressure done manually was 128/84. Height 5 feet 6 inches, weight 186 pounds, BMI 30.0. This is a well-developed well-nourished white female who is alert and oriented times 3 in no acute distress. HEENT: Within normal limits. NECK: Supple without mass or thyromegaly. CHEST AND LUNGS: Clear to auscultation. HEART: Regular rate and rhythm. BREASTS: Are without mass or discharge. AXILLARY EXAM: Negative for adenopathy. BACK: Negative for CVA tenderness. ABDOMEN: Soft, nontender, without palpable masses. PELVIC EXAM: Normal external genitalia. Cervix and vagina appear normal. The cervix appears nulliparous. There is no unusual discharge. There is no evidence of prolapse. The uterus is midposition, nongravid size and nontender. There are no palpable adnexal masses or tenderness. RECTAL EXAM: negative for mass or tenderness and is negative for occult blood. EXTREMITIES: Nontender. IMPRESSION: 1. 43-year-old female on oral contraception, with normal gynecologic exam. 2. Elevated initial blood pressure with normal repeat blood pressure. PLAN: 1. Pap smear was deferred since she had a negative Pap smear cotest on 07/16/2020. 2. Self breast awareness was discussed with the patient. We have also discussed symptoms associated with inflammatory breast cancer. 3. Screening mammogram will be done today. 4. We have discussed her initial elevated blood pressure and weight gain from last year. We have discussed how weight gain can contribute to blood pressure elevations. We have also discussed how this can increase the risk for heart attack and stroke if she has uncontrolled high blood pressure. We have also discussed how control pills can increase the risk of blood clots, heart attack, and stroke. I have stressed the importance of checking her blood pressure on a regular basis and to let me know if her blood pressures are elevated. I have also stressed the importance of trying to lose some weight. We have discussed the importance of good nutrition, regular meals, adequate fiber, and regular exercise. She states she will try to lose some weight and check her own blood pressure on a regular basis. The prescription for Ortho Tri-Cyclen will be sent to [facility] in [place]. 5. Continue her on control pills at this time. If she is having blood pressure elevations we will consider other options such as a progestin only control pill, male or female sterilization, and the intrauterine device. 6. She was advised to return in one year for her annual well woman exam and as needed.
--- NOTE | 2023-12-01 13:56 | MM ---
Reason for Exam: Screening (asymptomatic). Last screening mammogram was performed 12 month(s) ago. Patient History: Menarche at age 14. Patient has no children. Premenopausal. Currently using Hormonal Contraceptives, starting at age 15. Risk Values: Shea 5 year model risk: 0.8%. NCI Lifetime model risk: 9.8%. Prior Study Comparison: 07/29/2020 Bilateral Screening Mammogram, [facility]. 11/18/2021 Bilateral MG screening mammo w CAD, [facility]. 11/24/2022 Bilateral MG screening mammo w CAD, [facility]. Tissue Density: There are scattered areas of fibroglandular density. Findings: Analyzed By CAD. Right breast: There is no suspicious group of microcalcifications or new suspicious mass. Left breast: There is no suspicious group of microcalcifications or new suspicious mass. Overall Assessment: Negative, BI-RAD 1 Management: Screening Mammogram of both breasts in [address] [facility] will attempt to contact patient to return for supplemental views and ultrasound if indicated. Patient should continue monthly self-breast exams. A clinical breast exam by your physician is recommended on an annual basis. This exam should not preclude additional follow-up of suspicious palpable abnormalities. Note on Shea scores and lifetime risk: 1. A Shea score greater than 3% is considered moderate risk. If this is the case, consider specialist referral to assess eligibility for a risk reducing agent. 2. If overall lifetime risk for the development of breast cancer is 20% or higher, the patient may qualify for future screening with alternating mammogram and breast MRI. Electronically signed and approved by: Adán Kline DO
== END ==
LOC: WWCWWP 15:06
PROVIDERS: ATTEND Obstetrics & Gynecology
DX: Z12.31 Encounter for screening mammogram for malignant neoplasm of breast (principal); R03.0 Elevated blood-pressure reading, without diagnosis of hypertension; R92.323 Mammographic fibroglandular density, bilateral breasts; Z91.011 Allergy to milk products
CPT/HCPCS: 77067